=== PATIENT | female | born 1950 | race Caucasian/White ===

== ENCOUNTER → 2018-08-17 | Outpatient (CLI) | payer MEDICARE ==
[2018-08-18 01:24] LABS: Gliadin AB IgA, Unit 0.3 U/mL
== END | disposition home or self-care (01) ==
LOC: LABWHC1 15:36
PROVIDERS: ATTEND Allergy & Immunology
DX: K52.9 Noninfective gastroenteritis and colitis, unspecified (principal)
CPT/HCPCS: 36415; 82784; 83516

== ENCOUNTER 2021-12-24 01:37 | Emergency (ER) | payer MEDICARE ==
[2021-12-24 01:46] VITALS: BP 117/68; PULSE 75; RESP 16; TEMP 98
[2021-12-24 02:19] LABS: Basophils # (A) 0.1 k/uL (0-0.2); Basophils % (A) 0 %; Eosinophils # (A) 0.2 k/uL (0-0.7); Eosinophils % (A) 2 %; HCT 42.4 % (34.0-46.0); Lymphocytes % (A) 9 %; MCH 28.8 pg (25.0-35.0); MCV 87.3 fL (80.0-100.0); Mean Platelet Volume 8.2; Monocytes # (A) 0.9 k/uL (0-1.0); Monocytes % (A) 7 %; Neutrophils # (A) 9.5 k/uL (1.3-7.7); Neutrophils % (A) 80 %; Platelet Count 200 k/uL (150-450); RBC 4.86 m/uL (3.80-5.40); RDW 12.8 % (11.5-15.5); WBC 11.8 k/uL (3.8-10.6)
[2021-12-24 02:26] LABS: INR 0.9 (<1.2); Partial Thromboplastin Time 23.1 sec (22.0-30.0); Prothrombin Time 9.7 sec (9.0-12.0)
[2021-12-24 02:28] LABS: ALT 61 U/L (4-34); AST 48 U/L (14-36); African American GFR (CKD) >90 (>60 ml/min/1.73 sqM); Albumin 4.1 g/dL (3.5-5.0); Alkaline Phosphatase 301 U/L (38-126); Anion Gap 11 mmol/L; Blood Urea Nitrogen 14 mg/dL (7-17); Calcium 9.5 mg/dL (8.4-10.2); Carbon Dioxide 26 mmol/L (22-30); Chloride 101 mmol/L (98-107); Glucose 120 mg/dL (74-99); Non-African American GFR(CKD) >90 (>60 ml/min/1.73 sqM); Potassium 4.3 mmol/L (3.5-5.1); Sodium 138 mmol/L (137-145); Total Bilirubin 0.5 mg/dL (0.2-1.3); Total Protein 6.8 g/dL (6.3-8.2)
--- NOTE | 2021-12-24 03:07 | XR ---
EXAMINATION TYPE: XR chest 2V DATE OF EXAM: 12/24/2021 COMPARISON: NONE HISTORY: Chest pain TECHNIQUE: 2 views FINDINGS: There is no heart failure no confluent pneumonic infiltrate. Costophrenic angles are clear. Bony thorax is intact. IMPRESSION: Normal chest
--- NOTE | 2021-12-24 03:55 | ED ---
General Adult HPI - General Chief complaint: Chest Pain Stated complaint: Chest pain Time Seen by Provider: 12/24/21 02:49 Source: patient, RN notes reviewed, old records reviewed Mode of arrival: ambulatory Limitations: no limitations - History of Present Illness Initial comments: 71-year-old female presenting for evaluation of cough, congestion, and chest pain. Her reason for evaluation his chest pain which was moderate and acutely worsened prior to arrival this was just to the right side of the sternum. She has had sore throat, congestion and cough for the past several days. She has no prior history of cardiac disease. Pain is improved at the time my evaluation. No measured fever. - Related Data Previous Rx's Medication Instructions Recorded Azithromycin [Zithromax Z Pack] 1 tab PO DIRECTED #6 tab 12/24/21 Allergies Allergy/AdvReac Type Severity Reaction Status Date / Time No Known Allergies Allergy Verified 12/24/21 01:43 Review of Systems ROS Statement: Those systems with pertinent positive or pertinent negative responses have been documented in the HPI. ROS Other: All systems not noted in ROS Statement are negative. 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 Absent: tenderness, meningismus Respiratory exam: Present: normal lung sounds bilaterally. Absent: respiratory distress, wheezes Cardiovascular Exam: Present: regular rate, normal rhythm GI/Abdominal exam: Present: soft. Absent: distended, tenderness, guarding Extremities exam: Present: normal inspection, normal capillary refill. Absent: pedal edema, calf tenderness Neurological exam: Present: alert, oriented X3, CN II-XII intact. Absent: motor sensory deficit Psychiatric exam: Present: normal affect, normal mood Skin exam: Present: warm, dry, intact. Absent: cyanosis, diaphoretic Course Vital Signs 12/24/21 01:43 Temperature 98 F Pulse Rate 75 Respiratory 16 Rate Blood Pressure 117/68 O2 Sat by Pulse 98 Oximetry EKG Findings - EKG Comments: EKG Findings:: EKG: Sinus rhythm rate of 63, MN interval 145, QRS duration 80, QTC [address] segment elevation Medical Decision Making - Medical Decision Making 71-year-old female with chest congestion, sore throat, and an episode of chest pain which was predominantly right sided. EKG sinus rhythm without ST segment changes. Patient has chest x-ray which is negative for focal pneumonia no acute findings. White blood cell count is mildly elevated, stable hemoglobin, she has a transaminitis without abdominal pain or vomiting. Negative troponin 2, negative d-dimer. I did initially plan to observe this patient for stroke or headache enzymes and close monitoring however she declines. Prefers discharge with outpatient follow-up. She did agree to serial cardiac enzymes which were performed in the emergency department and were negative. - Lab Data Result diagrams: 12/24/21 02:02 12/24/21 02:02 Lab Results 12/24/21 12/24/21 12/24/21 Range/Units 01:50 02:02 02:02 WBC 11.8 H (3.8-10.6) k/uL RBC 4.86 (3.80-5.40) m/uL Hgb 14.0 (11.4-16.0) gm/dL Hct 42.4 (34.0-46.0) % MCV 87.3 (80.0-100.0) fL MCH 28.8 (25.0-35.0) pg MCHC 33.0 (31.0-37.0) g/dL RDW 12.8 (11.5-15.5) % Plt Count 200 (150-450) k/uL MPV 8.2 Neutrophils % 80 % Lymphocytes % 9 % Monocytes % 7 % Eosinophils % 2 % Basophils % 0 % Neutrophils # 9.5 H (1.3-7.7) k/uL Lymphocytes # 1.0 (1.0-4.8) k/uL Monocytes # 0.9 (0-1.0) k/uL Eosinophils # 0.2 (0-0.7) k/uL Basophils # 0.1 (0-0.2) k/uL PT 9.7 (9.0-12.0) sec INR 0.9 (<1.2) APTT 23.1 (22.0-30.0) sec D-Dimer (<0.60) mg/L FEU Sodium (137-145) mmol/L Potassium (3.5-5.1) mmol/L Chloride (98-107) mmol/L Carbon Dioxide (22-30) mmol/L Anion Gap mmol/L BUN (7-17) mg/dL Creatinine (0.52-1.04) mg/dL Est GFR (CKD-EPI)AfAm (>60 ml/min/1.73 sqM) Est GFR (CKD-EPI)NonAf (>60 ml/min/1.73 sqM) Glucose (74-99) mg/dL Calcium (8.4-10.2) mg/dL Total Bilirubin (0.2-1.3) mg/dL AST (14-36) U/L ALT (4-34) U/L Alkaline Phosphatase (38-126) U/L Troponin I (0.000-0.034) ng/mL Total Protein (6.3-8.2) g/dL Albumin (3.5-5.0) g/dL Coronavirus (PCR) Not Detected (Not Detectd) 12/24/21 12/24/21 12/24/21 Range/Units 02:02 02:02 04:06 WBC (3.8-10.6) k/uL RBC (3.80-5.40) m/uL Hgb (11.4-16.0) gm/dL Hct (34.0-46.0) % MCV (80.0-100.0) fL MCH (25.0-35.0) pg MCHC (31.0-37.0) g/dL RDW (11.5-15.5) % Plt Count (150-450) k/uL MPV Neutrophils % % Lymphocytes % % Monocytes % % Eosinophils % % Basophils % % Neutrophils # (1.3-7.7) k/uL Lymphocytes # (1.0-4.8) k/uL Monocytes # (0-1.0) k/uL Eosinophils # (0-0.7) k/uL Basophils # (0-0.2) k/uL PT (9.0-12.0) sec INR (<1.2) APTT (22.0-30.0) sec D-Dimer 0.24 (<0.60) mg/L FEU Sodium 138 (137-145) mmol/L Potassium 4.3 (3.5-5.1) mmol/L Chloride 101 (98-107) mmol/L Carbon Dioxide 26 (22-30) mmol/L Anion Gap 11 mmol/L BUN 14 (7-17) mg/dL Creatinine 0.53 (0.52-1.04) mg/dL Est GFR (CKD-EPI)AfAm >90 (>60 ml/min/1.73 sqM) Est GFR (CKD-EPI)NonAf >90 (>60 ml/min/1.73 sqM) Glucose 120 H (74-99) mg/dL Calcium 9.5 (8.4-10.2) mg/dL Total Bilirubin 0.5 (0.2-1.3) mg/dL AST 48 H (14-36) U/L ALT 61 H (4-34) U/L Alkaline Phosphatase 301 H (38-126) U/L Troponin I <0.012 (0.000-0.034) ng/mL Total Protein 6.8 (6.3-8.2) g/dL Albumin 4.1 (3.5-5.0) g/dL Coronavirus (PCR) (Not Detectd) 12/24/21 Range/Units 04:06 WBC (3.8-10.6) k/uL RBC (3.80-5.40) m/uL Hgb (11.4-16.0) gm/dL Hct (34.0-46.0) % MCV (80.0-100.0) fL MCH (25.0-35.0) pg MCHC (31.0-37.0) g/dL RDW (11.5-15.5) % Plt Count (150-450) k/uL MPV Neutrophils % % Lymphocytes % % Monocytes % % Eosinophils % % Basophils % % Neutrophils # (1.3-7.7) k/uL Lymphocytes # (1.0-4.8) k/uL Monocytes # (0-1.0) k/uL Eosinophils # (0-0.7) k/uL Basophils # (0-0.2) k/uL PT (9.0-12.0) sec INR (<1.2) APTT (22.0-30.0) sec D-Dimer (<0.60) mg/L FEU Sodium (137-145) mmol/L Potassium (3.5-5.1) mmol/L Chloride (98-107) mmol/L Carbon Dioxide (22-30) mmol/L Anion Gap mmol/L BUN (7-17) mg/dL Creatinine (0.52-1.04) mg/dL Est GFR (CKD-EPI)AfAm (>60 ml/min/1.73 sqM) Est GFR (CKD-EPI)NonAf (>60 ml/min/1.73 sqM) Glucose (74-99) mg/dL Calcium (8.4-10.2) mg/dL Total Bilirubin (0.2-1.3) mg/dL AST (14-36) U/L ALT (4-34) U/L Alkaline Phosphatase (38-126) U/L Troponin I <0.012 (0.000-0.034) ng/mL Total Protein (6.3-8.2) g/dL Albumin (3.5-5.0) g/dL Coronavirus (PCR) (Not Detectd) Disposition Clinical Impression: Upper respiratory infection, Chest pain Disposition: HOME SELF-CARE Condition: Good Instructions (If sedation given, give patient instructions): Chest Pain (ED), Upper Respiratory Infection (ED) Additional Instructions: Wheeze follow-up with her primary care physician, please return with any worsening or changing symptoms. Prescriptions: Azithromycin [Zithromax Z Pack] 1 tab PO DIRECTED #6 tab Is patient prescribed a controlled substance at d/c from ED?: No Referrals: None,Stated [Primary Care Provider] - 1-2 days Margarita Cruz MD [REFERRING] - 1-2 days Cristopher Can MD [STAFF PHYSICIAN] - 1-2 days Raudel Diane DO [STAFF PHYSICIAN] - 1-2 days Time of Disposition: 04:54
== END 2021-12-24 05:07 | disposition home or self-care (01) ==
LOC: EC 01:37
DX: J06.9 Acute upper respiratory infection, unspecified (principal); R07.9 Chest pain, unspecified; E07.9 Disorder of thyroid, unspecified; Z20.822 Contact with and (suspected) exposure to COVID-19
CPT/HCPCS: 36415; 71046; 80053; 84484; 85025; 85379; 85610; 85730; 87635; 93005; 99285

== ENCOUNTER → 2022-03-16 | Outpatient (CLI) | payer MEDICARE ==
--- NOTE | 2022-03-16 15:47 | MM ---
Reason for Exam: Follow-up at short interval from prior study. Last mammogram was performed 1 year(s) and 2 month(s) ago. Patient History: Menarche at age 11. First Full-Term at age 28. Postmenopausal. Breast cancer, age 51. Lumpectomy on the Right side. Excisional Biopsy on the Right side. Radiation Therapy, right. Tissue Density: The breast tissue is heterogeneously dense. This may lower the sensitivity of mammography. Findings: Analyzed By CAD. This document changes of right-sided lumpectomy. Stable nodular density left breast. No evidence for suspicious calcifications. Overall Assessment: Benign, BI-RAD 2 Management: Screening Mammogram of both breasts in 1 year. A clinical breast exam by your physician is recommended on an annual basis and results should be correlated with mammographic findings. This exam should not preclude additional follow-up of suspicious palpable abnormalities. Results were given to the patient verbally at the time of exam. Electronically signed and approved by: Jeremy Oconnell M.D. Radiologis
== END | disposition home or self-care (01) ==
LOC: RADMAMWWP 09:28
PROVIDERS: ATTEND Family Medicine
DX: D05.12 Intraductal carcinoma in situ of left breast (principal); Z78.0 Asymptomatic menopausal state
CPT/HCPCS: 77066; G0279; 77062

== ENCOUNTER → 2022-03-17 | Outpatient (CLI) | payer MEDICARE ==
--- NOTE | 2022-03-17 11:51 | US ---
EXAMINATION TYPE: US abdomen complete DATE OF EXAM: 03/17/2022 COMPARISON: NONE CLINICAL HISTORY: R74.01 elevated liver levels. Elevated liver enzymes. Hx appendectomy. TECHNIQUE: Multiple sonographic images of the abdomen are obtained. FINDINGS: EXAM MEASUREMENTS: Liver Length: 11.5 cm Gallbladder Wall: 0.15 cm CBD: 0.74 cm Spleen: 8.2 cm Right Kidney: 11.0 x 5.3 x 4.2 cm Left Kidney: 11.3 x 4.5 x 4.0 cm OPHTHALMIC LENS INSPECTOR NOTES: Limited due to overlying gas. Pancreas: Not well seen due to gas. Liver: No focal lesion or intrahepatic biliary ductal dilatation. Gallbladder: Fold seen. Appears anechoic. Evidence for sonographic Macedo's sign: No CBD: Appears slightly dilated. Spleen: Appears wnl Right Kidney: Anechoic area seen medially at the superior pole consistent with a cyst measuring 1.6 x 1.7 x 1.6 cm. No hydronephrosis, solid mass, shadowing renal calculi. Left Kidney: No hydronephrosis or masses seen. No shadowing renal calculi. Upper IVC: Appears wnl Abd Aorta: Proximal segment measures 2.8 cm in transverse. IMPRESSION: 1. No acute abdominal process. 2. Top end of normal for size with the common bile duct measuring up to 7 mm. This can be further ev aluated with MRCP as clinically indicated. 3. Ectasia of the proximal abdominal aorta measuring up to 2.8 cm.
== END | disposition home or self-care (01) ==
LOC: RADUSWWP 09:41
PROVIDERS: ATTEND Family Medicine
DX: I77.811 Abdominal aortic ectasia (principal); R74.01 Elevation of levels of liver transaminase levels
CPT/HCPCS: 76700

== ENCOUNTER → 2022-05-09 | Outpatient (CLI) | payer MEDICARE ==
--- NOTE | 2022-05-10 10:11 | MR ---
EXAMINATION TYPE: MR MRCP DATE OF EXAM: 05/09/2022 10:39 AM CLINICAL INDICATION:Female, 71 years old with history of R74.8 ABNORMAL LEVELS OF OTHER SERUM ENZYMES ; Abnormal enzyme levels. COMPARISON: Ultrasound 03/17/2022 TECHNIQUE: Multi planar, T2-weighted imaging with and without fat saturation and chemical shift imag ing was performed of the abdomen. Then, heavily T2 weighted imaging (half-Fourier acquisition single- shot turbo spin-echo) was utilized in order to study the biliary system. Maximum intensity projectio n images were reconstructed from the original data of the biliary tree. 3D images were created on [employer] work station. No Gadolinium given. FINDINGS: MRCP: The intrahepatic ducts have a normal appearance. The common bile duct at the level of the herrera creatic head measures 6 mm in size. The common hepatic duct measures 6 mm in size. The pancreatic du ct is normal. The gallbladder appears unremarkable. Abdomen: Liver: Signal dropout on in phase chemical shift imaging imaging. No focal mass. No intrahepatic duct al dilatation. Gallbladder and Bile ducts: Unremarkable. Pancreas: Unremarkable. Spleen: Signal dropout on in phase chemical shift imaging. Adrenal glands: Unremarkable. Kidneys: Stomach and Bowel: Unremarkable as visualized. Peritoneum: No evidence of pneumoperitoneum, free fluid, or adenopathy. Vasculature: Unremarkable. No aortic aneurysm. Flattened slightly appearance of the IVC. Abdominal wall: Unremarkable. Musculoskeletal: The osseous structures appear intact. IMPRESSION: 1. Signal dropout suggestive of iron deposition within the liver and spleen. No hepatic mass visuali zed. 2. No evidence to suggest ductal stricture, choledocholithiasis, or biliary ductal dilatation. 3. Flattened IVC likely secondary to volume status.
== END | disposition home or self-care (01) ==
LOC: RADMRIMAIN 09:41
PROVIDERS: ATTEND Family Medicine
DX: R74.8 Abnormal levels of other serum enzymes (principal)
CPT/HCPCS: 74181

== ENCOUNTER → 2023-03-30 | Outpatient (CLI) | payer MEDICARE ==
--- NOTE | 2023-03-31 07:40 | CA ---
Transthoracic Echo Report Name: Laurita Membreno Age: 72 Gender: F : 1950 Exam Date: 03/30/2023 16:01 Exam Location: [facility] Ht (in): 65 Wt (lb): 125 Ordering Physician: Raudel Diane DO Attending/Referring Phys: Special Service Officer Milly Gramajo [facility] Procedure CPT: Indications: R55 SYNCOPE AND COLLAPSE Cardiac Hx: Technical Quality: Fair Contrast 1: Total Dose (mL): Contrast 2: Total Dose (mL): MEASUREMENTS (Male / Female) Normal Values 2D ECHO LV Diastolic Diameter PLAX 3.9 cm 4.2 - 5.9 / 3.9 - 5.3 cm LV Systolic Diameter PLAX 2.4 cm IVS Diastolic Thickness 0.9 cm 0.6 - 1.0 / 0.6 - 0.9 cm LVPW Diastolic Thickness 0.9 cm 0.6 - 1.0 / 0.6 - 0.9 cm LV Relative Wall Thickness 0.5 LVOT Diameter 2.1 cm Aortic Root Diameter 3.4 cm Ascending Aorta Diameter 2.9 cm M-MODE Aortic Root Diameter MM 2.8 cm LA Systolic Diameter MM 3.9 cm LA Ao Ratio MM 1.4 AV Cusp Separation MM 1.9 cm DOPPLER AV Peak Velocity 150.3 cm/s AV Peak Gradient 9.0 mmHg AV Mean Velocity 110.9 cm/s AV Mean Gradient 5.4 mmHg AV Velocity Time Integral 30.2 cm AI Peak Velocity 469.7 cm/s AI Peak Gradient 88.2 mmHg AI Pressure Half Time 1023.6 ms LVOT Peak Velocity 100.7 cm/s LVOT Peak Gradient 4.1 mmHg LVOT Velocity Time Integral 24.3 cm LVOT Stroke Volume 82.0 cm??? LVOT Stroke Volume Index 50.6 ml/m??? LVOT Cardiac Index 4021.7 cm???/min???m??? AV Area Cont Eq vti 2.7 cm??? AV Area Cont Eq pk 2.3 cm??? Mitral E Point Velocity 48.1 cm/s Mitral A Point Velocity 63.7 cm/s Mitral E to A Ratio 0.8 MV Deceleration Time 217.6 ms LV E' Lateral Velocity 7.9 cm/s Mitral E to LV E' Lateral Ratio 6.1 LV E' Septal Velocity 4.7 cm/s Mitral E to LV E' Septal Ratio 10.2 TR Peak Velocity 220.4 cm/s TR Peak Gradient 19.4 mmHg Right Atrial Pressure 3.0 mmHg Pulmonary Artery Systolic Pressu 22.4 mmHg Right Ventricular Systolic Press 22.4 mmHg FINDINGS Left Ventricle Left ventricular wall thickness normal. Left ventricular cavity size normal. Normal left ventricular systolic function with no obvious regional wall motion abnormalities. Left ventricular ejection fraction is estimated at 55-60%. Right Ventricle Right ventricle at upper limits of normal. Right Atrium Normal right atrial size. Left Atrium Normal left atrial size. Mitral Valve Mild Mitral valve prolapse. Mild mitral regurgitation. Aortic Valve Trileaflet aortic valve. Mild aortic regurgitation.aortic valve sclerosis. Tricuspid Valve Structurally normal tricuspid valve. Mild tricuspid regurgitation. Pulmonic Valve Structurally normal pulmonic valve. Mild pulmonic regurgitation. Pericardium No pericardial effusion. Aorta Normal size aortic root and proximal ascending aorta. CONCLUSIONS 1. Normal left ventricle size and systolic function 2. Mild mitral regurgitation and mild mitral valve prolapse 3. Mild aortic and tricuspid regurgitation with no evidence of pulmonary hypertension Previewed by: Dr. Elisha Montero MD (Electronically Signed) Final Date: 31 March 2023 07:39
== END | disposition home or self-care (01) ==
LOC: RADECHMAIN 15:44
PROVIDERS: ATTEND Family Medicine
DX: I08.3 Combined rheumatic disorders of mitral, aortic and tricuspid valves (principal); R55 Syncope and collapse
CPT/HCPCS: 93306

== ENCOUNTER → 2023-03-30 | Outpatient (CLI) | payer MEDICARE ==
--- NOTE | 2023-03-30 18:39 | US ---
EXAMINATION TYPE: US st tissue head/neck DATE OF EXAM: 03/30/2023 COMPARISON: NONE CLINICAL INDICATION: Female, 72 years old with history of R59.0 LOCALIZED ENLARGED LYMPH NODES; Pt st ates small, palpable lump right lateral neck TECHNIQUE: Right lateral neck Anesthesiologist Assistant notes:Probable lymph node within area of pt's palpable= 1.1 x 0.3 x 0.4 cm with a corti vicente thickness= 0.2 cm IMPRESSION: Prominent but nonenlarged lymph node at the patient's right lateral neck palpable site. Probably reac tive/post inflammatory. This can be followed clinically. If any enlargement is noted, the area can be rescanned.
== END | disposition home or self-care (01) ==
LOC: RADUSWWP 12:42
PROVIDERS: ATTEND Family Medicine
DX: R59.0 Localized enlarged lymph nodes (principal)
CPT/HCPCS: 76536

== ENCOUNTER → 2023-04-28 | Outpatient (CLI) | payer MEDICARE ==
--- NOTE | 2023-04-28 18:29 | BD ---
EXAMINATION TYPE: Axial Bone Density DATE OF EXAM: 04/28/2023 CLINICAL HISTORY: 72 years old Female. ICD-10 CODE: Z78.0 ASYMPTOMATIC MENOPAUSAL STATE Height: 65 Weight: 126.4 FRAX RISK QUESTIONS: Alcohol (3 or more units per day): no Family History (Parent hip fracture): no Glucocorticoids (More than 3mos): no (Ex: prednisone, prednisolone, methylprednisolone, dexamethasone, and hydrocortisone). History of Fracture in Adulthood: no Secondary Osteoporosis: 1. Type 1 Diabetes: no 2. Hyperthyroidism: no 3. Menopause before 45: no 4. Malnutrition: no 5. Chronic liver disease: no Rheumatoid Arthritis: no Current Tobacco Use: no RISK FACTORS HISTORY OF: Surgery to Spine/Hip(right/left)/Wrist (right/left): no MEDICATIONS: Thyroid Medications:levothyroxine How Long: since 1989 Additional History: EXAM MEASUREMENTS: Bone mineral densitometry was performed using the 27 bards System. Bone mineral density as measured about the Lumbar spine is: ----- L1-L4(G/cm2): 0.886 T Score Values are as follows: ----- L1: -2.7 ----- L2: -2.9 ----- L3: -2.1 ----- L4: -2.3 ----- L1-L4: -2.5 Z Score Values are as follows: ----- L1: -0.7 ----- L2: -0.9 ----- L3: -0.1 ----- L4: -0.3 ----- L1-L4: -0.5 Bone mineral density has: decreased -13.1 % since study of: 04.01.2009 Bone mineral density about the R hip (g/cm2): 0.671 Bone mineral density about the L hip (g/cm2): 0.694 T Score values are as follows: -----R Neck: -2.7 -----L Neck: -2.3 -----R Total: -2.7 -----L Total: -2.5 Z Score values are as follows: -----R Neck: -0.7 -----L Neck: -0.3 -----R Total: -0.8 -----L Total: -0.7 Bone mineral density has: decreased -16.8 % since study of: 04.01.2009 FRAX%s: The graph provided illustrates a 16.1% chance for a major osteoporotic fx and a 5.5% chance f or the hips probability for fx in 10 years time. IMPRESSION: Osteoporosis (T Score less than -2.5). There is increased fracture risk and therapy is usually indicated based on age. Re-Screen 1-2 years. NOTE: T-SCORE=SD OF THE YOUNG ADULT MEAN.
--- NOTE | 2023-04-29 20:22 | MM ---
Reason for Exam: Screening (asymptomatic). Last mammogram was performed 1 year(s) and 1 month(s) ago. Patient History: Menarche at age 11. First Full-Term at age 28. Postmenopausal. Breast cancer, right, age 51. Previous chest radiation therapy at age 51. Lumpectomy on the Right side. Excisional Biopsy on the Right side. Radiation Therapy, right. Prior Study Comparison: 06/20/2019 Bilateral MG screening mammo w CAD - 2, [facility]. 01/13/2021 Bilateral MG 3D screening mammo w/cad, [facility]. 03/16/2022 Bilateral MG 3D diag mammo w/cad [facility], [facility]. Tissue Density: The breast tissue is heterogeneously dense. This may lower the sensitivity of mammography. Findings: Analyzed By CAD. Postsurgical and posttreatment changes right breast. Benign vascular calcifications on the right. Chronic nodularity subareolar right breast. There is no suspicious group of microcalcifications or new suspicious mass in either breast. Overall Assessment: Benign, BI-RAD 2 Management: Screening Mammogram of both breasts in 1 year. . Patient should continue monthly self-breast exams. A clinical breast exam by your physician is recommended on an annual basis. This exam should not preclude additional follow-up of suspicious palpable abnormalities. Electronically signed and approved by: Armond Tan M.D. Radiologist
== END | disposition home or self-care (01) ==
LOC: RADMAMWWP 11:00
PROVIDERS: ATTEND Family Medicine
DX: Z12.31 Encounter for screening mammogram for malignant neoplasm of breast (principal); M85.852 Other specified disorders of bone density and structure, left thigh; M81.0 Age-related osteoporosis without current pathological fracture; Z85.3 Personal history of malignant neoplasm of breast; Z78.0 Asymptomatic menopausal state
CPT/HCPCS: 77063; 77067; 77080

== ENCOUNTER → 2023-07-29 | Outpatient (CLI) | payer MEDICARE ==
--- NOTE | 2023-07-29 19:54 | MR ---
MR brain without contrast. HISTORY: Headache. Remote history of breast cancer. COMPARISON: None. TECHNIQUE: Multiecho multiplanar images of brain were obtained without contrast. The ventricles, basal cisterns and sulci of the convexities within normal limits for the patient's ag e. There are a few scattered focal areas of abnormal increased signal intensity in the white matter b oth cerebral hemispheres. These are nonspecific white matter changes but also reflect chronic ischemi c white matter changes.. Based on diffusion-weighted imaging, there is no acute ischemic event. Based on susceptible weighted images there is no focal remote hemorrhage. There is no mass effect or shift of midline structures. Posterior fossa including the brainstem, fourth ventricle and cerebellopontine angles appear normal. Intraorbital contents. Ultimately. There are moderate chronic inflammatory changes in the frontal, ethmoid and maxillary sinuses. There is mild fluid in the mastoid air cells. IMPRESSION: 1. No mass, mass effect or shift in midline structures. 2. No acute ischemic change. 3. Mild age-appropriate atrophy and mild nonspecific chronic ischemic white matter changes 4. Moderate chronic pansinusitis and mild fluid in the mastoid air cells bilaterally.
== END | disposition home or self-care (01) ==
LOC: RADMRIMAIN 18:04
PROVIDERS: ATTEND Family Medicine
DX: I67.82 Cerebral ischemia (principal); G31.1 Senile degeneration of brain, not elsewhere classified; J32.4 Chronic pansinusitis; H74.8X3 Other specified disorders of middle ear and mastoid, bilateral
CPT/HCPCS: 70551